=== PATIENT | female | born 1990 | race African-American/Black ===

== ENCOUNTER 2021-05-29 08:50 | Inpatient (IN) | payer SELFPAY ==
[2021-05-29 10:15] VITALS: BMI 34.2
[2021-05-29] MEDS ORDERED: DEXTROSE 5%-LACTATED RINGERS 1,000 ML IV SCH (10:15)
[2021-05-29 10:17] LABS: EOS % 0.3 % (0-4.5); HEMATOCRIT 33.2 % (32.4-45.2); HEMOGLOBIN 11.2 GM/dL (10.7-15.3); LYMPH % 14.9 % (8-40); MCH 26.1 pg (25.7-33.7); MCHC 33.8 g/dl (32.0-36.0); MEAN CELL VOLUME 77.3 fl (80-96); MEAN PLT VOLUME 10.1 fl (7.5-11.1); MONO % 8.2 % (3.8-10.2); NEUT % 75.6 % (42.8-82.8); PLATELET COUNT 194 10^3/uL (134-434); RDW 15.8 % (11.6-15.6); WHITE BLOOD COUNT 7.4 K/mm3 (4.0-10.0)
[2021-05-29 10:25] LABS: INR 0.91 (0.83-1.09)
[2021-05-29 10:28] LABS: ACTIVATED PTT 29.2 SECONDS (25.2-36.5)
[2021-05-29] MEDS ORDERED: AMPICILLIN - 2 GM in SODIUM CHLORIDE 100 ML IVPB ONE (10:30)
[2021-05-29] MEDS ORDERED: AMPICILLIN SODIUM 2 GM VIAL ONE (10:35)
[2021-05-29 10:42] LABS: CALCIUM 9.3 mg/dL (8.5-10.1)
[2021-05-29 10:43] LABS: BLOOD UREA NITROGEN 8.3 mg/dL (7-18)
[2021-05-29 10:46] LABS: CREATININE 0.8 mg/dL (0.55-1.3)
[2021-05-29 11:38] LABS: HIV INTERPRETATION NEGATIVE (NEGATIVE)
[2021-05-29] MEDS ORDERED: PROMETHAZINE HCL 25 MG/1 ML VIAL IVPUSH ONE (11:51)
[2021-05-29] MEDS ORDERED: BUTORPHANOL TARTRATE 1 MG/ML VIAL IVPB ONE (11:51)
[2021-05-29] MEDS ORDERED: FENTANYL/BUPIVACAINE/NS/PF - PCEA - 50 ML DISP.SYRIN EP ONE ×2 (12:29→17:14)
[2021-05-29] MEDS: FENTANYL/BUPIVACAINE/NS/PF - PCEA - 50 ML DISP.SYRIN EP SCH ×2 (12:50→17:16)
[2021-05-29] MEDS ORDERED: AMPICILLIN SODIUM 1 GM VIAL ONE ×2 (14:41→18:22)
[2021-05-29] MEDS: AMPICILLIN - 1 GM in SODIUM CHLORIDE 100 ML IVPB SCH ×2 (14:50→18:27)
[2021-05-29] MEDS ORDERED: OXYTOCIN 30 UNITS in 0.9% NS 30 UNIT/500 ML INFUS.BAG IVPB SCH (15:00)
[2021-05-29] MEDS ORDERED: NALOXONE HCL 0.4 MG/ML VIAL IVPUSH PRN (15:06)
[2021-05-29] MEDS ORDERED: PCA PUMP NR ONE ×2 (16:03→21:35)
[2021-05-29] MEDS ORDERED: CITRIC ACID/SODIUM CITRATE 30 ML UNIT-DOSE CUP PO ONE (20:33)
[2021-05-29] MEDS ORDERED: ELECTROLYTE-148 SOLN 1,000 ML IV SCH (20:45)
[2021-05-29] MEDS ORDERED: LIDOCAINE HCL/EPINEPHRINE/PF 10 ML VIAL ONE (20:54)
[2021-05-29] MEDS ORDERED: PROPOFOL 20 ML ONE (20:58)
[2021-05-29] MEDS ORDERED: MIDAZOLAM HCL 2 MG/2 ML SINGLE DOSE VIAL ONE (21:14)
[2021-05-29] MEDS ORDERED: morphine SULFATE/PF 0.5 MG/ML (2cc Syringe - QUVA) ONE ×2 (21:38)
[2021-05-29] MEDS ORDERED: IBUPROFEN 800 MG/8 ML IJ IVPB PRN (22:09)
[2021-05-29] MEDS ORDERED: ONDANSETRON 4 MG/2 ML VIAL ONE (22:09)
[2021-05-29] MEDS ORDERED: oxyCODONE HCL 5 MG TABLET PO PRN (22:09)
[2021-05-29] MEDS ORDERED: METHYLERGONOVINE MALEATE 0.2 MG/1 ML AMP IM PRN (22:09)
[2021-05-29] MEDS ORDERED: ACETAMINOPHEN 325 MG TABLET (FP) PO PRN (22:09)
[2021-05-29] MEDS ORDERED: OXYTOCIN 20 UNITS in 0.9% NS 20 UNIT/1,000 ML INFUS.BAG IV SCH (22:15)
[2021-05-29] MEDS ORDERED: IBUPROFEN 800 MG/8 ML IJ IVPB ONE (22:47)
[2021-05-29] MEDS ORDERED: OXYTOCIN 20 UNITS in 0.9% NS 20 UNIT/1,000 ML INFUS.BAG IV ONE (23:08)
[2021-05-30] MEDS: SIMETHICONE 80 MG TAB.CHEW (FP) PO PRN ×4 (02:45→20:36)
[2021-05-30] MEDS: IBUPROFEN 600 MG TABLET (FP) PO PRN ×3 (08:39→23:29)
[2021-05-30 09:06] LABS: BASO % 0.4 % (0-2.0); EOS % 0.1 % (0-4.5); HEMATOCRIT 27.8 % (32.4-45.2); HEMOGLOBIN 9.3 GM/dL (10.7-15.3); LYMPH % 12.8 % (8-40); MCH 25.9 pg (25.7-33.7); MCHC 33.6 g/dl (32.0-36.0); MEAN CELL VOLUME 77.1 fl (80-96); MEAN PLT VOLUME 10.4 fl (7.5-11.1); MONO % 10.9 % (3.8-10.2); NEUT % 75.8 % (42.8-82.8); PLATELET COUNT 150 10^3/uL (134-434); WHITE BLOOD COUNT 8.3 K/mm3 (4.0-10.0)
[2021-05-30] MEDS: PRENATAL VITAMINS W/ FOLIC ACID TABLET (FP) PO SCH (09:33)
[2021-05-30] MEDS: SENNOSIDES/DOCUSATE COMBO (SENNA PLUS) TABLET (UD) PO PRN (20:36)
[2021-05-30] MEDS: oxyCODONE HCL 5 MG TABLET PO PRN (20:37)
[2021-05-30] MEDS ORDERED: BISACODYL 10 MG SUPP.RECT RC PRN (22:09)
[2021-05-31] MEDS: IBUPROFEN 600 MG TABLET (FP) PO PRN ×2 (08:05→16:00)
[2021-05-31] MEDS: PRENATAL VITAMINS W/ FOLIC ACID TABLET (FP) PO SCH (09:47)
[2021-05-31] MEDS: SIMETHICONE 80 MG TAB.CHEW (FP) PO PRN ×2 (12:27→19:52)
[2021-05-31] MEDS: SENNOSIDES/DOCUSATE COMBO (SENNA PLUS) TABLET (UD) PO PRN (19:51)
[2021-05-31] MEDS: oxyCODONE HCL 5 MG TABLET PO PRN (19:52)
[2021-06-01] MEDS: IBUPROFEN 600 MG TABLET (FP) PO PRN ×2 (01:56→09:23)
[2021-06-01] MEDS: PRENATAL VITAMINS W/ FOLIC ACID TABLET (FP) PO SCH (09:23)
[2021-06-01 10:05] VITALS: BP 111/74; PULSE 83; TEMP 98.4
== END 2021-06-01 12:30 | disposition home or self-care (01) | DRG 540 ==
LOC: JDEL 08:50 → JLDR 09:30 → J3W 23:19
PROVIDERS: ADMIT Obstetrics & Gynecology; ATTEND Obstetrics & Gynecology
PROC: 10D00Z1 Extraction of Products of Conception, Low, Open Approach (ICD-10-PCS; principal; 2021-05-29)
DX: O76 Abnormality in fetal heart rate and rhythm complicating labor and delivery (principal); O36.63X0 Maternal care for excessive fetal growth, third trimester, not applicable or unspecified; O62.0 Primary inadequate contractions; Z3A.39 39 weeks gestation of pregnancy; Z37.0 Single live birth
CPT/HCPCS: 36415; 80048; 85025; 85610; 85730; 86780; 86850; 86900; 86901; 87389; C9803; U0003; U0005